=== PATIENT | female | born 1965 | race Caucasian/White ===

== ENCOUNTER 2024-12-06 16:13 | Observation (INO) | payer OTHER ==
[~2024-12-06] VITALS: Ht 165.1 cm; Wt 96.0 kg
--- NOTE | 2024-12-06 16:51 | ED.PDOC ---
History of Present Illness HPI Comments 59-year-old female who comes in with chief complaint of anemia. The patient was having some generalized weakness and states that the symptoms have increased over the past 1-1/2 weeks. The patient went to the [facility] today and had the blood drawn. At that time the patient's hemoglobin was only 4.9 so 911 was called and the patient was sent to our facility. The patient denies any syncopal episode, chest pain, nausea or vomiting. The patient also denies any fever. She is complaining of some mild shortness a breath. 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: No Pertinent CYLINDER TESTER History Family History Family History (Other): Family history of dementia Social History Smoker: Non-Smoker Alcohol: Denies ETOH Use Drugs: Denies Drug Use Lives In: Home Constitutional: reports: weakness; denies: chills, diaphoresis, fatigue, fever, malaise, sweats, others EENTM: denies: blurred vision, double vision, ear bleeding, ear discharge, ear drainage, ear pain, ear ringing, eye pain, eye redness, hearing loss, mouth pain, mouth swelling, nasal discharge, nose bleeding, nose congestion, nose pain, photophobia, tearing, throat pain, throat swelling, voice changes, others Respiratory: reports: shortness of breath; denies: cough, hemoptysis, orthopnea , SOB at rest, SOB with excertion, stridor, wheezing, others Cardiovascular: denies: chest pain, dizzy spells, diaphoresis, Dyspnea on exertion, edema, irregular heart beat, left arm pain, lightheadedness, palpitations, PND, syncope, others Gastrointestinal: denies: abdomen distended, abdominal pain, blood streaked bowels, constipated, diarrhea, dysphagia, difficulty swallowing, hematemesis, melena, nausea, poor appetite, poor fluid intake, rectal bleeding, rectal pain, vomiting, others Genitourinary: denies: abnormal vagina bleeding, burning, dyspareunia, dysuria, flank pain, frequency, hematuria, incontinence, pain, , vagina discharge, urgency, others Neurological: denies: dizziness, fainting, headache, left sided numbness, left sided weakness, numbness, paresthesia, pre-existing deficit, right sided numbness, right sided weakness, seizure, speech problems, tingling, tremors, weakness, others Musculoskeletal: denies: back pain, gout, joint pain, joint swelling, muscle pain, muscle stiffness, neck pain, others Integumetry: denies: bruises, change in color, change in hair/nails, dryness, laceration, lesions, lumps, rash, wounds, others Allergic/Immunocompromised: denies: Difficulty Healing, Frequent Infections, Hives, Itching, others Hematologic/Lymphatic: denies: anemia, blood clots, easy bleeding, easy bruising, swollen glands, others Endocrine: denies: excessive hunger, excessive sweating, excessive thirst, excessive urination, flushing, intolerance to cold, intolerance to heat, unexplained weight gain, unexplained weight loss, others Psychiatric: denies: anxiety, bipolar disorder, depression, hopeless, panic disorder, schizophrenia, sleepless, suicidal, others Physical Exam General Appearance: Mild Distress HEENT: Pale Conjuntivae (L), Pale Conjuntivae (R), Pharynx Normal, TMs Normal Neck: Full Range of Motion, Non-Tender, Normal, Normal Inspection Respiratory: Chest Non-Tender, Lungs Clear, No Accessory Muscle Use, No Respiratory Distress, Normal Breath Sounds Cardiovascular: No Edema, No JVD, No Murmur, No Gallop, Normal Peripheral Pulses, Regular Rate/Rhythm Breast Exam: Deferred Gastrointestinal: No Organomegaly, Non Tender, No Pulsatile Mass, Normal Bowel Sounds, Soft Genitalia: Deferred Pelvic: Deferred Rectal: Deferred Extremities: No calf tenderness, Normal capillary refill, No pedal edema Musculoskeletal : Apperance: Normal Neurologic: Alert, 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 Was a procedure done?: No EKG EKG : Pulse Rate (adult): 84 [place]: Normal Cardiac Rhythm: NSR ST: Nonsp Differential Dx Considerations may include: Generalized weakness, dehydration, anemia X-Ray, Labs, Meds, VS Vital Signs Date Time Temp Pulse Resp B/P (MAP) Pulse Ox O2 Delivery O2 Flow Rate FiO2 12/06/24 16:51 84 12/06/24 16:15 84 12/06/24 16:13 98.3 58 16 160/78 (105) 97 12/06/24 16:13 Room Air* 0 21 Lab Test 12/06/24 16:02 Range/Units White Blood Count 6.1 4.4-10.8 10^3/uL Red Blood Count 2.60 L 4.0-5.20 10^6/uL Hemoglobin 5.3 *L 12.2-16.2 g/dL Hematocrit 19.8 L 36.0-46.0 % Mean Corpuscular Volume 76.1 L 80.0-100.0 fL Mean Corpuscular Hemoglobin 20.4 L 28.0-32.0 pg Mean Corpuscular Hemoglobin Concent 26.8 L 32.0-36.0 g/dL Red Cell Distribution Width 29.2 H 11.8-14.3 % Platelet Count 276 140-450 10^3/uL Mean Platelet Volume 8.0 6.9-10.8 fL Neutrophils (%) (Auto) 75.7 37.0-80.0 % Lymphocytes (%) (Auto) 14.2 10.0-50.0 % Monocytes (%) (Auto) 6.5 0.0-12.0 % Eosinophils (%) (Auto) 2.9 0.0-7.0 % Basophils (%) (Auto) 0.7 0.0-2.0 % Neutrophils # (Auto) 4.6 1.6-8.6 10 ^3/uL Lymphocytes # (Auto) 0.9 0.4-5.4 10 ^3/uL Monocytes # (Auto) 0.4 0-1.3 10 ^3/uL Eosinophils # (Auto) 0.2 0-0.8 10 ^3/uL Basophils # (Auto) 0 0-0.2 10 ^3/uL Nucleated Red Blood Cells 0.2 % Platelet Estimate Pending At this time the patient was being typed and screened. We are going to transfuse the patient with packed red blood cells We did contact the hospitalist and the patient was being admitted at this time. Time of 1ST Reevaluation: 16:50 Reevaluation 1ST: Unchanged Patient Education/Counseling: Diagnosis, Treatment, Prognosis Family Education/Counseling: No Family Present Departure 1 Departure Time of Disposition: 16:50 Impression: Primary Impression: Severe anemia Additional Impression: Generalized weakness Disposition: 09 ADMITTED INPATIENT Condition: Fair Critical Care Note Critical Care Time?: No Stability Stability form required: No Heart Score Heart Score: Heart Score Response (Comments) Value History N/A 0 EKG N/A 0 Age N/A 0 Risk Factors N/A 0 Troponin N/A 0 Total 0 JEFF LIANG MD Dec 06, 2024 16:51
--- NOTE | 2024-12-06 17:10 | DVHHP2 ---
Admitting Diagnosis: Anemia History of Present Illness HPI Patient is a 59-year-old female with past medical history of chronic anemia who presents from [facility] urgent care due to hemoglobin of 4.9. Patient's vitals were noted to be stable at the urgent care and on arrival to the ER. Patient denies any GIB bleeding. Patient was typed and screened in the ER with plan for PRBC transfusion. Patient be admitted for PBC transfusion and monitoring. Home Meds Active Scripts Polyethylene Glycol 3350 (Miralax) 17 Gm Pow, 17 GM PO DAILY PRN for 30 Days, #1000 POW 0 Refills Take as needed daily for constipation. Prov:YUSRA LUI Duong GORDON 12/07/24 Ferrous Sulfate (Iron) 325 Mg Tab, 325 MG PO DAILY, #30 TAB 1 Refill Prov:YUSRA LUI Duong GORDON 12/07/24 Past Medical History Hemotology/Oncology: Anemia NOS Review of Systems Constitutional: Weakness H&P Exam Vital Signs Vital Signs Date Time Temp Pulse Resp B/P (MAP) Pulse Ox O2 Delivery O2 Flow Rate FiO2 12/06/24 16:51 84 12/06/24 16:13 98.3 16 160/78 (105) 97 12/06/24 16:13 Room Air* 0 21 General Appeara: Well developed Pulmonary/Respiratory: Normal inspection Neuro/Mental St: Alert Assessment/Plan Primary Diagnosis 1. Anemia Plan Admit to telemetry. PRBC transfusion with goal hemoglobin greater than 7. Iron panel ordered. Medications as listed per JAN. Regular diet. Full code. Plan discussed with: Patient YUSRA LUI Dec 06, 2024 17:09
[2024-12-06] MEDS ORDERED: MORPHINE SULFATE INJ 2 MG/ml SYRG IV PRN ×2 (17:15)
[2024-12-06] MEDS ORDERED: HYDROcodone-ACET 5/325MG TAB PO PRN (17:15)
[2024-12-06] MEDS ORDERED: ACETAMINOPHEN 325 MG TAB PO PRN (17:15)
[2024-12-06] MEDS ORDERED: NITROGLYCERIN 0.4 MG SL TAB SL PRN (17:15)
[2024-12-06] MEDS ORDERED: TEMAZEPAM 15 MG CAP PO PRN (17:15)
[2024-12-06 17:22] LABS: Basophils # (auto) 0 10 ^3/uL (0-0.2); Eosinophils # (auto) 0.2 10 ^3/uL (0-0.8); Monocytes # (auto) 0.4 10 ^3/uL (0-1.3); Monocytes % (auto) 6.5 % (0.0-12.0); Nucleated Red Blood Cells % 0.2 %
[2024-12-06 17:24] LABS: Basophils % (auto) 0.7 % (0.0-2.0); Eosinophils % (auto) 2.9 % (0.0-7.0); Hematocrit 19.8 % (36.0-46.0); Lymphocytes # (auto) 0.9 10 ^3/uL (0.4-5.4); Lymphocytes % (auto) 14.2 % (10.0-50.0); Mean Corpuscular Hemoglobin 20.4 pg (28.0-32.0); Mean Corpuscular Hgb Conc. 26.8 g/dL (32.0-36.0); Mean Corpuscular Volume 76.1 fL (80.0-100.0); Neutrophils # (auto) 4.6 10 ^3/uL (1.6-8.6); Neutrophils % (auto) 75.7 % (37.0-80.0); Platelet Count (auto) 276 10^3/uL (140-450); White Blood Cell 6.1 10^3/uL (4.4-10.8)
[2024-12-06 17:30] LABS: Red Cell Distribution Width 29.2 % (11.8-14.3)
[2024-12-06 17:31] LABS: Hemoglobin 5.3 g/dL (12.2-16.2)
[2024-12-06 18:50] VITALS: PULSE 88; RESP 16; O2SAT 95
[2024-12-06 18:51] LABS: Anisocytosis Marked; Platelet Estimate Adequate
[2024-12-06 18:52] LABS: Hypochromia Marked
[2024-12-06 19:02] LABS: % Iron Saturation 3.5 % (15-50)
[2024-12-06 20:42] VITALS: BP 123/55; PULSE 88; RESP 22; TEMP 98.3
[2024-12-06 20:52] LABS: Urine Bacteria MANY /hpf (None Seen); Urine Blood Negative /uL (Negative); Urine Clarity Clear (Clear); Urine Color Light-Yellow (Yellow); Urine Mucus FEW (None Seen); Urine Protein, UAD Negative (Negative); Urine Specific Gravity 1.011 (1.001-1.035); Urine Squamous Epithelial Cell FEW /hpf (<5); Urine Urobilinogen Normal (Negative); Urine WBC < 1 /HPF (0-5); Urine pH 6.5 (5.0-9.0)
[2024-12-06 21:10] VITALS: BP 129/67; PULSE 89; RESP 16; TEMP 98.7
[2024-12-06 23:51] VITALS: PULSE 88; RESP 16; O2SAT 97
[2024-12-07] VITALS (12 sets, daily range): BP systolic 108–156; BP diastolic 55–80; PULSE 77–93; RESP 16–20; TEMP 97.8–98.9; O2SAT 95–99
[2024-12-07 08:29] LABS: Basophils # (auto) 0 10 ^3/uL (0-0.2); Eosinophils # (auto) 0.1 10 ^3/uL (0-0.8); Lymphocytes # (auto) 0.9 10 ^3/uL (0.4-5.4); Neutrophils # (auto) 2.4 10 ^3/uL (1.6-8.6); White Blood Cell 3.8 10^3/uL (4.4-10.8)
[2024-12-07 08:32] LABS: Basophils % (auto) 0.6 % (0.0-2.0); Eosinophils % (auto) 3.6 % (0.0-7.0); Hematocrit 21.4 % (36.0-46.0); Lymphocytes % (auto) 22.7 % (10.0-50.0); Mean Corpuscular Hemoglobin 22.2 pg (28.0-32.0); Mean Corpuscular Hgb Conc. 29.6 g/dL (32.0-36.0); Monocytes # (auto) 0.3 10 ^3/uL (0-1.3); Neutrophils % (auto) 64.1 % (37.0-80.0); Nucleated Red Blood Cells % 0.4 %; Platelet Count (auto) 264 10^3/uL (140-450); Red Blood Cells 2.85 10^6/uL (4.0-5.20); Red Cell Distribution Width 26.4 % (11.8-14.3)
[2024-12-07 08:36] LABS: Alkaline Phosphatase 86 U/L (46-116); Anion Gap 6 (5-15); BUN/Creatinine Ratio 13.4 (10.0-20.0); Blood Urea Nitrogen 11 mg/dL (9-23); Calcium 9.4 mg/dL (8.7-10.4); Carbon Dioxide 26 mmol/L (20-31); Glucose 93 mg/dL (74-106); Potassium 4.2 mmol/L (3.5-5.1); Sodium 142 mmol/L (136-145)
[2024-12-07 08:37] LABS: Albumin 3.7 g/dL (3.2-4.8); Bilirubin, Total 0.6 mg/dL (0.2-1.0); Total Protein 6.2 g/dL (5.7-8.2)
[2024-12-07 08:38] LABS: Alanine Aminotransferase < 9 U/L (7-40); Aspartate Aminotransferase 10 U/L (13-40); Chloride 110 mmol/L (98-107)
--- NOTE | 2024-12-07 08:54 | ECG ---
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
[2024-12-07 09:07] LABS: Hemoglobin 6.3 g/dL (12.2-16.2)
[2024-12-07] MEDS ORDERED: FERR-7 PO (09:53)
[2024-12-07] MEDS ORDERED: POLY335015 PO (09:54)
--- NOTE | 2024-12-07 13:55 | DVHDS2 ---
Discharge Summary Date of Admission Dec 06, 2024 at 17:01 Date of Discharge: Dec 07, 2024 Labs/Diagnostic Data: Laboratory Results Test 12/07/24 07:30 12/06/24 18:31 12/06/24 16:42 12/06/24 16:02 White Blood Count 3.8 10^3/uL (4.4-10.8) Red Blood Count 2.85 10^6/uL (4.0-5.20) Hemoglobin 6.3 g/dL (12.2-16.2) Hematocrit 21.4 % (36.0-46.0) Mean Corpuscular Volume 75.0 fL (80.0-100.0) Mean Corpuscular Hemoglobin 22.2 pg (28.0-32.0) Mean Corpuscular Hemoglobin Concent 29.6 g/dL (32.0-36.0) Red Cell Distribution Width 26.4 % (11.8-14.3) Platelet Count 264 10^3/uL (140-450) Mean Platelet Volume 8.1 fL (6.9-10.8) Neutrophils (%) (Auto) 64.1 % (37.0-80.0) Lymphocytes (%) (Auto) 22.7 % (10.0-50.0) Monocytes (%) (Auto) 9.0 % (0.0-12.0) Eosinophils (%) (Auto) 3.6 % (0.0-7.0) Basophils (%) (Auto) 0.6 % (0.0-2.0) Neutrophils # (Auto) 2.4 10 ^3/uL (1.6-8.6) Lymphocytes # (Auto) 0.9 10 ^3/uL (0.4-5.4) Monocytes # (Auto) 0.3 10 ^3/uL (0-1.3) Eosinophils # (Auto) 0.1 10 ^3/uL (0-0.8) Basophils # (Auto) 0 10 ^3/uL (0-0.2) Nucleated Red Blood Cells 0.4 % Sodium Level 142 mmol/L (136-145) Potassium Level 4.2 mmol/L (3.5-5.1) Chloride Level 110 mmol/L (98-107) Carbon Dioxide Level 26 mmol/L (20-31) Anion Gap 6 (5-15) Blood Urea Nitrogen 11 mg/dL (9-23) Creatinine 0.82 mg/dL (0.550-1.02) Glomerular Filtration Rate Calc 81 mL/min (>90) BUN/Creatinine Ratio 13.4 (10.0-20.0) Serum Glucose 93 mg/dL (74-106) Calcium Level 9.4 mg/dL (8.7-10.4) Total Bilirubin 0.6 mg/dL (0.2-1.0) Aspartate Amino Transferase (AST) 10 U/L (13-40) Alanine Aminotransferase (ALT) < 9 U/L (7-40) Alkaline Phosphatase 86 U/L (46-116) Total Protein 6.2 g/dL (5.7-8.2) Albumin 3.7 g/dL (3.2-4.8) Urine Color Light-yellow (Yellow) Urine Clarity Clear (Clear) Urine pH 6.5 (5.0-9.0) Urine Specific [place] 1.011 (1.001-1.035) Urine Protein Negative (Negative) Urine Ketones Negative (Negative) Urine Blood Negative /uL (Negative) Urine Nitrite Negative (Negative) Urine Bilirubin Negative (Negative) Urine Urobilinogen Normal mg/dL (Negative) Urine Leukocyte Esterase Negative /uL (Negative) Urine RBC <1 /hpf (0 - 4) Urine Microscopic WBC < 1 /HPF (0-5) Urine Squamous Epithelial Cells Few /hpf (<5) Urine Bacteria Many /hpf (None Seen) Urine Mucus Few (None Seen) Urine Glucose Normal mg/dL (Normal) Iron Level 15 ug/dL (50-170) Total Iron Binding Capacity 429 ug/dL (250-425) Percent Iron Saturation 3.5 % (15-50) Platelet Estimate Adequate Hypochromasia (manual) Marked Anisocytosis (manual) Marked Microcytosis Slight Other Laboratory Tests 12/07/24 07:30 Brief Hx & Hospital Course: Patient is a 59-year-old female with past medical history of chronic anemia who presents from [facility] urgent care due to hemoglobin of 4.9. Patient's vitals were noted to be stable at the urgent care and on arrival to the ER. Patient denies any GIB bleeding. Patient was typed and screened in the ER with plan for PRBC transfusion. Patient be admitted for PBC transfusion and monitoring. Patient was transfused PRBC with hemoglobin greater than 7 bowel discharge. Iron panel was checked which was consistent with iron deficient anemia. Patient was discharged on ferrous sulfate once daily with MiraLAX. Patient has to follow-up with hematology on discharge. Patient discharged in stable condition. [facility] case management arrange follow-up appointments. Condition at Discharge: Good Final Diagnosis/Problems List Iron Deficiency Anemia Secondary Diagnosis: Hypertension Morbid Obesity with Risk Factors Discharge Disposition: Home Discharge Instruct/Medications Diet: Regular Activity: No Restrictions, As Tolerated Follow Up/Referral: Follow up with hematology. Medications: ferrous sulfate and miralax Discharge Statement: "Patient was advised to return to the ER or call 911 if any headaches, dizziness, shortness of breath, chest pain, abdominal pain, bleeding, fevers, or worsening of medical condition. Patient was counseled about treatment plan, medications, possible side effects, patientverbalized understanding. All questions were answered to the best of my ability. This discharge took greater then 30 minutes in planning, reviewing documentation, counseling the patient, and discussing with other team members." ASSESSMENT ASSESSMENT Assessment Anemia YUSRA LUI DO Dec 07, 2024 13:55
[2024-12-07 18:20] LABS: Hematocrit 25.3 % (36.0-46.0); Hemoglobin 7.5 g/dL (12.2-16.2)
== END 2024-12-07 19:50 | disposition home or self-care (01) ==
LOC: EDBD 16:13 → ER 16:20 → TELE 17:01 → TELE-WESTW 23:37
PROVIDERS: ADMIT Student in an Organized Health Care Education/Training Program; ATTEND Student in an Organized Health Care Education/Training Program
DX: D50.9 Iron deficiency anemia, unspecified (principal); D84.9 Immunodeficiency, unspecified; I10 Essential (primary) hypertension; R53.1 Weakness; E66.9 Obesity, unspecified; Z79.899 Other long term (current) drug therapy; Z98.890 Other specified postprocedural states; Z68.35 Body mass index [BMI] 35.0-35.9, adult
CPT/HCPCS: 36415; 36430; 80053; 81001; 83540; 83550; 85014; 85018; 85025; 86850; 86900; 86901; 86920; 93005; 99284; G0378; J7030; P9016